=== PATIENT | female | born 1995 | race Caucasian/White ===

== ENCOUNTER 2016-08-16 09:16 | Day surgery (SDC) | payer BC ==
[2016-08-10 14:47] VITALS: BMI 26.4
[~2016-08-16 09:16] MED LIST: LACTATED RINGERS 1,000 ML IV SCH
[2016-08-16 09:41] VITALS: RESP 16; TEMP 98.5
[2016-08-16] MEDS ORDERED: LIDOCAINE 1% 20 ML VIAL (10MG/ML) FOR IV START INTRADERMA ONE (09:43)
[2016-08-16] MEDS ORDERED: fentaNYL (PF) 50 MCG/ML 2 ML AMP ONE (10:04)
[2016-08-16] MEDS ORDERED: TRIAMCINOLONE ACETONIDE 40 MG/ML 1 ML VIAL ONE (10:04)
[2016-08-16] MEDS ORDERED: MIDAZOLAM 2 MG/2 ML VIAL ONE (10:04)
[2016-08-16] MEDS ORDERED: IOHEXOL 180 MG/ML 1 ML ML ONE (10:04)
--- NOTE | 2016-08-16 10:28 | P.PCN ---
Date of Procedure: 08/16/16 Procedure(s) Performed: PREOPERATIVE DIAGNOSIS: 1- Lumbar Degenerative Disc Diseases 2-Lumbar radiculopathy. 3-lumbar herniated disc disease POSTOPERATIVE DIAGNOSIS: Same as preoperative diagnosis. PROCEDURE 1. Lumbar epidural steroid injection under fluoroscopic guidance at the L5-S1 level. 2. Lumbar epidurogram. ANESTHESIA: Local with 1% lidocaine 3 ml and IV sedation with Versed 4 mg , and fentanyle 100 Mcg EBL: Minimal PROCEDURE INDICATION: The patient with low back pain and radiculitis symptoms unresponsive to conservative treatment. Fluoroscopy was used to optimize visualization of the needle placement and to maximize safety. PROCEDURE DESCRIPTION / TECHNIQUE: The patient was seen and identified in the preoperative area. Risks, benefits , complications including but not limited to infections ,bleeding ,allergic reaction to the medications ,nerve damage and not complete pain releife , and alternatives were discussed with the patient. The patient agreed to proceed with the procedure and signed the consent. IV was started, and vital signs were stable. Patient was taken to the OR and time out was completed. The patient was placed in the prone position on procedure table and a pillow was placed under the abdomen to reduce lumbar lordosis. The lumbosacral area was prepped and draped in the usual sterile fashion.ere closely monitored during the procedure. Conscious sedation was used during the procedure to decrease patients anxiety. Vital signs was monitered during the entire procedure. Using anterior-posterior fluoroscopy, the L5-S1 interlaminar space was identified and the skin over this site was marked and then infiltrated with 1% lidocaine subcutaneously. Subsequently, a 20-gauge Tuohy epidural needle was inserted and advanced toward the epidural space using the Loss of resistance technique and guided by AP and lateral fluoroscopy. The correct needle position in the epidural space was verified with the injection of 2 mL of the water soluble contrast dye Omnipaque 180 contrast and observing an excellent epidurogram with the epidural spread of the dye, after negative aspiration for blood and CSF and in the absence of paresthesias. Again after negative aspiration, a 6 ml mixture containing 80 mg of Kenalog and 2 ml of preservative free Normal Saline, and 2 ml of preservative free lidocaine 1% solution was injected and a washout of epidurogram was seen. Needle was withdrawn intact, skin was cleansed, and bandages were applied. COMPLICATIONS: None DISPOSITION / PLANS: The patient was placed in a supine position and transferred to the recovery area in a stable condition for observation. There was no evidence of lower extremity motor or sensory deficit after the procedure. Patient was discharged from the recovery room after meeting discharge criteria. Home discharge instructions were given to the patient by the staff. The patient was reexamined prior to discharge. The patient will schedule a follow up in the clinic in 2-4 weeks. Patient also given prescription for Mobic 7.5 mg twice a day when necessary. And prescription for Ultram 50 mg every 8 hours when necessary dispense 60, examination today showed patient had severe tenderness over the left sacroiliac joint in the future if patient continues to have pain we will consider doing a left sacroiliac joint steroid injection
[2016-08-16] MEDS ORDERED: IV FLUID CONTINUATION 1,000 ML IV ONE (10:50)
[2016-08-16 11:01] VITALS: BP 128/82; PULSE 82
--- NOTE | 2016-08-16 11:58 | FL ---
EXAMINATION TYPE: FL guided pain mgmt statistic DATE OF EXAM: 08/16/2016 10:26 AM HISTORY: Pain LUMBAR EPIDURAL; FL TIME 3 SECONDS; DR. AGUDELO; ONE SCANNED FILM
== END 2016-08-16 11:12 | disposition home or self-care (01) ==
LOC: ORPAIN 09:16
PROVIDERS: ATTEND Specialist
DX: M51.16 Intervertebral disc disorders with radiculopathy, lumbar region (principal)
CPT/HCPCS: 81025; 62322; J2250; J3301; Q9965; J3010; 62323

== ENCOUNTER → 2016-09-14 | Outpatient (CLI) | payer BC ==
[2016-09-14 14:32] VITALS: BP 144/96; PULSE 101; RESP 18; TEMP 98.1
--- NOTE | 2016-09-14 15:05 | P.PN ---
Subjective This is follow-up visit for this patient with a history of severe and chronic low back pain with radiation to the lower extremity secondary to lumbar degenerative disc disease, lumbar facet arthropathy, we have done interventional pain management injection, lumbar epidural steroid injections 3 , and she continued to have severe low back pain, at her lower extremity pain improved after the epidural steroid injection, including her low back pain, she denies any motor sensory deficit, she denies any change in the bowel movement or urination, she denies any fever or night sweats, and is currently on pain medications 1-Mobic 7.5 mg twice a day 2-Ultram 50 mg every 8 hours when necessary Patient denies any side effects of the medication, denies excessive drowsiness or sleepiness, denies suicidal ideation, and reports that the current pain medication is NOT helping To control the pain and improve activity of daily living , patient is known to physical therapy and she has no benefit from physical therapy Physical Examinations : 1-Constitutiona : Cooperative , not in acute distress . 2-HEENT : nech ; supple , no Lymphadenopathy , no Thyromegaly , normal thyroid size . eyes : no ptosis , no icterus, no photophobia . ENT : normal of hearing , normal oropharynx , no Thrush . 3- Respiratory : Chest clear to auscultations Bilaterally , no wheezing , no Rhonchi . 4- Cardiovascular : regular rate and rhythem , S1 , S2 , no S3 , no S4. 5- Gastrointestinal : abdomen soft no tenderness , bowel sounds positive all four quadrents , no organomegally . 6- Genitourinary : Defferred . 7- neurologic : Cranial nerve II to XII intact , no focal neurological deffecit . 8-psychatric : alert , oriented X 3 , appropriate affect , intact judgment and insight . 9-Lymphatic : no Lymphadenopathy . 10- musculoskeltal : exams of the cervical spine = motor strength normal bilateral upper extremities facet loading test cervical area positive. exams of the Lumber spine = motor strength lower extremities ,thigh and legs .5/5 deep tendon reflexes : normal Knee Jerk , normal ankle Jerk . lumber facet Loading Test positive strait leg raising test negative bilaterally Fabere test negative bilaterally Diagnostic study= MRI of the lumbar spine done 05/31/2016 showed multilevel lumbar degenerative disc disease from L3 4 through L5-S1, and multilevel facet arthropathy and degeneration from L3-4 to L5-S1 Assessment and plan = - Chronic low back pain secondary to lumbar degenerative disc disease , lumbar spondylosis with facet arthropathy without myelopathy , - Status post lumbar epidural steroid injections 3, patient continued to have no back pain. Patient will be scheduled to have diagnostic medial branch block lumbar area at L3-4 /L4 5/L5-S1, and due to multiple different locations and if she had a good result (more than 50% improvement of her low back pain ) then we will proceed with the radiofrequency ablation of the medial branch lumbar area, and I discussed with patient that she continue to have pain after the injection ,then she has to consider the surgical options ,and this has to be discussed with Dr. Albarran for neurosurgeon. Objective - Vital Signs Vital signs: Vital Signs Temp 98.1 F 09/14/16 14:24 Pulse 101 H 09/14/16 14:24 Resp 18 09/14/16 14:24 BP 144/96 09/14/16 14:24 Pulse Ox 99 09/14/16 14:24 Intake & Output 09/13/16 09/14/16 09/14/16 18:59 06:59 18:59 Weight 86.183 kg
== END | disposition home or self-care (01) ==
LOC: PNWHC3 13:43
PROVIDERS: ATTEND Specialist
DX: G89.29 Other chronic pain (principal); M51.36 Other intervertebral disc degeneration, lumbar region; M47.816 Spondylosis without myelopathy or radiculopathy, lumbar region; Z79.1 Long term (current) use of non-steroidal anti-inflammatories (NSAID); Z79.891 Long term (current) use of opiate analgesic
CPT/HCPCS: 99211

== ENCOUNTER 2016-10-01 07:38 | Day surgery (SDC) | payer BC ==
[2016-09-30 08:40] VITALS: BMI 26.4
[2016-10-01 08:45] VITALS: RESP 16; TEMP 97.4
[2016-10-01] MEDS ORDERED: fentaNYL (PF) 50 MCG/ML 2 ML AMP ONE (09:20)
[2016-10-01] MEDS ORDERED: MIDAZOLAM 2 MG/2 ML VIAL ONE (09:20)
[2016-10-01] MEDS ORDERED: TRIAMCINOLONE ACETONIDE 40 MG/ML 1 ML VIAL ONE (09:20)
[2016-10-01] MEDS ORDERED: LIDOCAINE 1% 20 ML VIAL (10MG/ML) FOR IV START INTRADERMA ONE (09:20)
[2016-10-01] MEDS ORDERED: BUPIVACAINE (PF) 0.5% 30 ML VIAL ONE (09:20)
--- NOTE | 2016-10-01 09:47 | P.PCN ---
Date of Procedure: 10/01/16 Procedure(s) Performed: PREOPERATIVE DIAGNOSIS : 1- Lumbar spondylosis with Facet Arthropathy without myelopathy . 2- Lumber degenerative disc disease POSTOPERATIVE DIAGNOSIS: 1- Lumbar spondylosis with Facet Arthropathy without myelopathy . 2- Lumber degenerative disc disease PROCEDURE: Diagnostic bilateral L3 -4 , L4 -5 , and L5-S1 medial branch block under fluoroscopy ANESTHESIA: Local with 1% lidocaine 6 ml ; IV sedation with Versed 6 mg and Fentanyl 150 mcg. EBL: Minimal COMPLICATION: None. IV FLUIDS: 100 mL of normal saline. PROCEDURE INDICATION: Chronic low back pain secondary to Facet arthropathy unresponsive to conservative treatment. PROCEDURE DESCRIPTION: the patient was seen and identified in the preop holding area , risks and benefits and possible complications of the procedure and alternative were discussed with the patient, and the patient agreed to proceed with the procedure and signed the consent IV was started and vital signs monitored during the procedure and fluoroscopy was used to maximize the benefit and accuracy of the needle placement, and sedation was given to decrease patient anxiety, patient was taken to the procedure room and placed in prone position vital signs monitored in the back prepped with chlorhexidine X3 then under strict sterile technique using a right oblique fluoroscopy ,the junction of the transverse process and the superior articulating process of the right L3- 4 , L4- 5, and L5-S1 vertebra which corresponding to the fluoroscopy image of the eye of the Balta dog on the block side for the medial branches and subsequently , after local infiltration of skin and subcu tissuies with lidocaine 1% one mL at each level ,then 22- gauge Quincke-type needles , 3 needle was used , each one of them placed at the junction of the base of the transverse process and the superior articular process at the appropriate level, and the needle was advanced until the periosteum contacted, needle placement confirmed with AP oblique and lateral view and after appropriate needle placement confirmed, and after negative aspiration for heme and CSF and there was no paresthesia 1-1/2 mL of Marcaine 0.5% mixed with 40 mg Kenalog , then half mL injected at each level after negative aspiration the needle subsequently removed and the same procedure repeated for the left side at left side at L3-4, L4- 5 and L5-S1 levels. At the end of the procedure and the needles removed and a bandage applied after the skin was cleaned the cleaning solution patient taken to recovery room in stable condition and monitors in the recovery room for 20-30 minutes and discharged home in stable condition after discharge criteria met and patient will follow up with the pain clinic in 2-4 weeks
[2016-10-01] MEDS ORDERED: IV FLUID CONTINUATION 1,000 ML IV ONE (09:53)
--- NOTE | 2016-10-01 09:54 | FL ---
EXAMINATION TYPE: FL guided pain mgmt statistic DATE OF EXAM: 10/01/2016 9:50 AM HISTORY: Pain bilateral lumbar facet block; four scanned films; Dr. Cuevas; FL time 11 seconds
[2016-10-01 10:10] VITALS: BP 128/87; PULSE 80
== END 2016-10-01 10:34 | disposition home or self-care (01) ==
LOC: ORPAIN 07:38
PROVIDERS: ATTEND Specialist
DX: G89.29 Other chronic pain (principal); M51.36 Other intervertebral disc degeneration, lumbar region; M47.816 Spondylosis without myelopathy or radiculopathy, lumbar region; M46.96 Unspecified inflammatory spondylopathy, lumbar region; F41.9 Anxiety disorder, unspecified
CPT/HCPCS: 64493; 64494; 64495; 99152; 81025; J2250; J3301; J3010

== ENCOUNTER 2016-11-09 06:58 | Day surgery (SDC) | payer BC ==
[2016-11-05 15:10] VITALS: BMI 26.2
[2016-11-09 07:24] VITALS: RESP 16; TEMP 98.2
[2016-11-09] MEDS ORDERED: LACTATED RINGERS 1,000 ML IV SCH (07:30)
[2016-11-09] MEDS ORDERED: LIDOCAINE 1% 20 ML VIAL (10MG/ML) FOR IV START SQ ONE (07:32)
[2016-11-09] MEDS ORDERED: LACTATED RINGERS 1,000 ML IV ONE (07:33)
[2016-11-09] MEDS ORDERED: MIDAZOLAM 2 MG/2 ML VIAL ONE (07:53)
[2016-11-09] MEDS ORDERED: TRIAMCINOLONE ACETONIDE 40 MG/ML 1 ML VIAL ONE (07:53)
[2016-11-09] MEDS ORDERED: BUPIVACAINE (PF) 0.5% 30 ML VIAL ONE (07:53)
[2016-11-09] MEDS ORDERED: fentaNYL (PF) 50 MCG/ML 2 ML AMP ONE (07:53)
[2016-11-09] MEDS ORDERED: IV FLUID CONTINUATION 1,000 ML IV ONE (08:22)
--- NOTE | 2016-11-09 08:37 | FL ---
Fluoroscopy INDICATION: Pain FINDINGS: Fluoroscopy time: 28 seconds. Images obtained: 5. IMPRESSIONS: 1. Documentation of fluoroscopy.
[2016-11-09 08:40] VITALS: BP 118/61; PULSE 83
--- NOTE | 2016-11-09 08:42 | P.PCN ---
Date of Procedure: 11/09/16 Surgeon: Brandt Bello Pathology: none sent Condition: stable Disposition: PACU Description of Procedure: PREOPERATIVE DIAGNOSIS: L3-L4, L4-L5, and L5-S1 spondylosis without myelopathy and facet arthropathy. POSTOPERATIVE DIAGNOSIS: L3-L4, L4-L5, and L5-S1 spondylosis without myelopathy and facet arthropathy. PROCEDURE DESCRIPTION: Patient presents for L3, L4 and L5 diagnostic medial branch blocks under fluoroscopic guidance. The procedure is performed using fluoroscopic guidance during needle placement to assure proper position and maximize safety. ANESTHESIA: Local with 1% lidocaine; conscious sedation EBL: Minimal PROCEDURE INDICATION: Patient with lumbar facet arthropathy signs and symptoms, here for diagnostic medial branch block #2 after two weeks' relief >50% from first MBB. Pt does not take any blood thinning medications. PROCEDURE DESCRIPTION: The patient was seen and identified in the preoperative area. Risks, benefits, complications, and alternatives were discussed with the patient (including but not limited to incomplete pain relief, bleeding, infection, nerve damage, and allergies to medications), the patient agreed to proceed with the procedure and signed the consent after all questions were answered. Patient was taken to the OR and time out was completed to verify proper patient, position, laterality of pain, and allergies. Pt was placed in the prone position and a pillow was placed under the abdomen to reduce lumbar lordosis. The lumbosacral area was prepped and draped in the usual sterile fashion. Using oblique fluoroscopy, the eye of the "Balta dog" of right L4 vertebral body, which corresponds to the path of the medial branch originating from the level above, which is L3 in this case, was identified. Subsequently, a 22-gauge 3.5-inch spinal needle was inserted under fluoroscopic guidance toward the eye of the "Balta dog" of the right L4 vertebral body, corresponding to the junction of the superior articular process and the transverse process of the pedicle of the same level. After needle tip confirmation on lateral view and after negative aspiration for CSF and blood and without paresthesias, 1 mL of a 6 ml solution of 0.5% preservative-free bupivacaine and 40 mg Kenalog was injected. Subsequently the needle was withdrawn intact and the same procedure was repeated for the right L4, right L5, left L3, left L4, and left L5 medial branches which together with right L3 medial branch correspond to the sensory innervation of the bilateral L3-L4, L4-L5, and L5-S1 facet joints. Needle was withdrawn intact after each injection. At the end of the procedure, the skin was cleansed and bandages were applied. COMPLICATIONS: None. DISPOSITION/PLAN: The patient taken to the recovery area after the procedure in a stable condition for observation. Patient was reexamined prior to discharge and there were no issues. Patient was discharged home, accompanied by an adult, after meeting discharged criteria. Discharge instructions were give to the patient by the staff. Patient was specifically instructed not to drive today and to rest for the rest of the day. If the patient has relief, she will follow up for lumbar RFA at next visit.
== END 2016-11-09 08:55 | disposition home or self-care (01) ==
LOC: ORPAIN 06:58
PROVIDERS: ATTEND Anesthesiology
DX: M46.96 Unspecified inflammatory spondylopathy, lumbar region (principal); M47.816 Spondylosis without myelopathy or radiculopathy, lumbar region; M47.817 Spondylosis without myelopathy or radiculopathy, lumbosacral region; G89.29 Other chronic pain; Z79.899 Other long term (current) drug therapy
CPT/HCPCS: 81025; 64493; 64494; 64495; 99152; J2250; J3301; J3010

== ENCOUNTER 2016-12-16 06:24 | Day surgery (SDC) | payer BC ==
[2016-12-15 11:51] VITALS: BMI 26.4
[2016-12-16 06:38] VITALS: RESP 16; TEMP 97.8
[2016-12-16] MEDS ORDERED: LIDOCAINE 1% 20 ML VIAL (10MG/ML) FOR IV START INTRADERMA ONE (06:42)
[2016-12-16] MEDS ORDERED: BUPIVACAINE (PF) 0.5% 30 ML VIAL ONE (07:15)
[2016-12-16] MEDS ORDERED: fentaNYL (PF) 50 MCG/ML 2 ML AMP ONE (07:15)
[2016-12-16] MEDS ORDERED: MIDAZOLAM 2 MG/2 ML VIAL ONE (07:15)
[2016-12-16] MEDS ORDERED: TRIAMCINOLONE ACETONIDE 40 MG/ML 1 ML VIAL ONE (07:15)
--- NOTE | 2016-12-16 07:46 | P.PCN ---
Date of Procedure: 12/16/16 Procedure(s) Performed: PREOPERATIVE DIAGNOSIS: 1-Lumbar Spondylosis with Facet Arthropathy without myelopathy. POSTOPERATIVE DIAGNOSIS: 1- Lumbar Spondylosis with Facet Arthropathy without myelopathy. PROCEDURES : Left Radiofrequency thermocoagulation, L3-L4, L4-L5, and L5-S1 medial branch, with fluoroscopic guidance ANESTHESIA: IV sedation with versed 4 mg and fentaneyl 150 mcg and local infiltration with lidocaine 1% 6 ml EBL: Minimal PROCEDURE INDICATION: The patient with low back pain secondary to lumbar facet arthropathy who had more than 50% relief of her pain with previous diagnostic lumbar medial branch block with bupivacaine. PROCEDURE DESCRIPTION / TECHNIQUE: The patient was seen and identified in the preoperative area. Risks, benefits, complications, including but not limited to risk of infection ,bleeding , allergic reactions to the medications and no complete pain releife , and alternatives were discussed with the patient, the patient agreed to proceed with the procedure and signed the consent. IV was started. Vital signs remained stable throughout the procedure. Patient was taken to the OR and time out was completed. The patient was placed in the prone position on the procedure table. The lumber area was prepped and draped in the usual sterile fashion. . Vital signs were closely monitored during the procedure .IV sedation was used during the procedure to decrease patients anxiety. Using AP and then oblique fluoroscopy, the ``eye of the Balta dog corresponding to the connection between the superior and transverse articular processes of left L3, L4, and L5 were identified, marked, and localized with 1 % lidocaine. Subsequently, a 18 [id number] radiofrequency cannula with a 10- mm active tip was advanced guided by fluoroscopy to each of the ``eyes of the Balta dog at left L3, L4, and L5. Each site then underwent sensory testing at 50 Hz and 0 to 1 volt and motor testing at 2.5 Hz and 0 to 3 volt with local stimulation, but no radicular symptoms down the legs. Thereafter the left L3-4, L4-5, and L5-S1 sites underwent radiofrequency thermocoagulation at 80 degrees celsius for 90 seconds after injecting 0.5 ml of PF lidocaine 1%. then After the thermocoagulation done , 1 ml of the block solution containing Kenalog 40 mg and 3 ml of marain 0.5% was injected at the left L3- 4 , L4-5 , and L5-S1, levels after negative aspiration of CSF and blood and with no paresthesias. Cannulas were retracted while injecting lidocaine 1% until the needle is out. At the end of the procedure, the skin was cleansed and bandages were applied. COMPLICATIONS: No acute complications. DISPOSITION / PLANS: The patient was placed in a supine position and transferred to the recovery area in a stable condition for observation and was discharged from the recovery room after meeting discharge criteria. Home discharge instructions given to the patient by the staff. The patient was reexamined prior to discharge. The patient will schedule a follow up in the clinic in 2-4 weeks.
[2016-12-16] MEDS ORDERED: IV FLUID CONTINUATION 1,000 ML IV ONE (07:51)
--- NOTE | 2016-12-16 08:14 | FL ---
Fluoroscopy HISTORY: Pain 23 seconds fluoroscopy time supplied to the referring clinician. 3 intraoperative C-arm images docum ent the procedure. See dictated report from anesthesia.
[2016-12-16 08:17] VITALS: BP 124/87; PULSE 80
== END 2016-12-16 08:26 | disposition home or self-care (01) ==
LOC: ORPAIN 06:24
PROVIDERS: ATTEND Specialist
DX: M47.816 Spondylosis without myelopathy or radiculopathy, lumbar region (principal); M46.96 Unspecified inflammatory spondylopathy, lumbar region
CPT/HCPCS: 81025; 64635; 64636; 99152; J2250; J3301; J3010

== ENCOUNTER 2017-01-19 06:22 | Day surgery (SDC) | payer BC ==
[2017-01-17 15:05] VITALS: BMI 25.7
[2017-01-19 07:10] VITALS: TEMP 98.3
[2017-01-19] MEDS ORDERED: BUPIVACAINE (PF) 0.5% 30 ML VIAL ONE (07:34)
[2017-01-19] MEDS ORDERED: DEXAMETHASONE SOD PHOS (MDV) 100 MG/10 ML VIAL ONE (07:34)
[2017-01-19] MEDS ORDERED: MIDAZOLAM 2 MG/2 ML VIAL ONE (07:34)
[2017-01-19] MEDS ORDERED: fentaNYL (PF) 50 MCG/ML 2 ML AMP ONE (07:34)
--- NOTE | 2017-01-19 07:59 | P.PCN ---
Date of Procedure: 01/19/17 Preoperative Diagnosis: Postoperative Diagnosis: Procedure(s) Performed: PREOPERATIVE DIAGNOSIS: 1-Lumbar Spondylosis with Facet Arthropathy without myelopathy. POSTOPERATIVE DIAGNOSIS: 1- Lumbar Spondylosis with Facet Arthropathy without myelopathy. PROCEDURES : Right Radiofrequency thermocoagulation, L3-L4, L4-L5, and L5-S1 medial branch, with fluoroscopic guidance ANESTHESIA: IV sedation with versed 4 mg and fentaneyl 200 mcg and local infiltration with lidocaine 1% 6 ml EBL: Minimal PROCEDURE INDICATION: The patient with low back pain secondary to lumbar facet arthropathy who had more than 50% relief of her pain with previous diagnostic lumbar medial branch block with bupivacaine. PROCEDURE DESCRIPTION / TECHNIQUE: The patient was seen and identified in the preoperative area. Risks, benefits, complications, including but not limited to risk of infection ,bleeding , allergic reactions to the medications and no complete pain releife , and alternatives were discussed with the patient, the patient agreed to proceed with the procedure and signed the consent. IV was started. Vital signs remained stable throughout the procedure. Patient was taken to the OR and time out was completed. The patient was placed in the prone position on the procedure table. The lumber area was prepped and draped in the usual sterile fashion. . Vital signs were closely monitored during the procedure .IV sedation was used during the procedure to decrease patients anxiety. Using AP and then oblique fluoroscopy, the ``eye of the Balta dog corresponding to the connection between the superior and transverse articular processes of right L3, L4, and L5 were identified, marked, and localized with 1 % lidocaine. Subsequently, a 18 [id number] radiofrequency cannula with a 10- mm active tip was advanced guided by fluoroscopy to each of the ``eyes of the Balta dog at right L3, L4, and L5. Each site then underwent sensory testing at 50 Hz and 0 to 1 volt and motor testing at 2.5 Hz and 0 to 3 volt with local stimulation, but no radicular symptoms down the legs. Thereafter the right L3-4, L4-5, and L5-S1 sites underwent radiofrequency thermocoagulation at 80 degrees celsius for 90 seconds after injecting 0.5 ml of PF lidocaine 1%. then After the thermocoagulation done , 1 ml of the block solution containing Dexamethasone 10 mg and 3 ml of marain 0.5% was injected at the right L3-4 , L4-5 , and L5-S1, levels after negative aspiration of CSF and blood and with no paresthesias. Cannulas were retracted while injecting lidocaine 1% until the needle is out. At the end of the procedure, the skin was cleansed and bandages were applied. COMPLICATIONS: No acute complications. DISPOSITION / PLANS: The patient was placed in a supine position and transferred to the recovery area in a stable condition for observation and was discharged from the recovery room after meeting discharge criteria. Home discharge instructions given to the patient by the staff. The patient was reexamined prior to discharge. The patient will schedule a follow up in the clinic in 2-4 weeks. Implants: Indications for Procedure: Operative Findings: Description of Procedure:
--- NOTE | 2017-01-19 08:06 | FL ---
EXAMINATION TYPE: FL guided pain mgmt statistic DATE OF EXAM: 01/19/2017 CLINICAL HISTORY: Low back pain. TECHNIQUE: Fluoroscopy. COMPARISON: None. FINDINGS: Fluoroscopic guidance was provided during pain relief procedure performed by Dr. Mccormack . A total of 7 seconds of fluoroscopic time was utilized during the procedure and 3 spot images are acquired. Images acquired shows needle localization at several levels in the lumbar spine. IMPRESSION: As Above.
[2017-01-19 08:31] VITALS: BP 121/84; PULSE 80; RESP 16
[2017-01-19] MEDS ORDERED: IV FLUID CONTINUATION 1,000 ML IV ONE (08:31)
== END 2017-01-19 08:38 | disposition home or self-care (01) ==
LOC: ORPAIN 06:22
PROVIDERS: ATTEND Specialist
DX: M47.816 Spondylosis without myelopathy or radiculopathy, lumbar region (principal); M46.96 Unspecified inflammatory spondylopathy, lumbar region
CPT/HCPCS: 64635; 64636 ×2; 99152; 81025; J2250; J3010; J1100

== ENCOUNTER → 2017-02-21 | Outpatient (CLI) | payer BC ==
[2017-02-21 13:59] VITALS: BP 138/92; PULSE 103; RESP 16; TEMP 100.5
--- NOTE | 2017-02-21 14:22 | P.PN ---
Progress Note - Text Patient returns for followup for chronic back pain with radiation to bilateral lower extremities. Patient recently underwent bilateral lumbar RFA, which has provided excellent for interval since procedure; patient does not have any pain in her legs and back pain is significantly improved. Patient continues on tramadol medications for pain with good relief. Patient denies adverse drug effects from medications. Today, pt denies new-onset weakness, bowel/bladder incontinence, or any other signs or symptoms of cauda equina syndrome. There are no signs of acute intoxication, and no indications of medication diversion or overuse. In addition to above, 13-point review of systems is also negative for chest pain , shortness of breath, changes in vision, changes in hearing, new onset weakness , abdominal pain, diarrhea, extreme fatigue, malaise, fever, skin changes, homicidal or suicidal ideation, or bowel or bladder incontinence. Vital Signs: Reviewed in EMR Gen: WDWN, AAOx3, NAD HEENT: NCAT, EOMI, hearing grossly normal Pulm: resp unlabored Abd: soft, NT, ND Neck: supple, trachea midline ROM in flexion lumbar spine: reduced ROM in extension lumbar spine: reduced Lumbar paravertebral tenderness: + Facet loading: + bilateral, L > R SI joint tenderness: neg Yadiel's test: + L > R Straight leg raise: neg Neuro: CN II-XII grossly intact, muscle strength lower extremities PRESERVED Imaging: Reviewed in EMR Assessment: 1. lumbar disc herniation 2. lumbar spondylosis without myelopathy 3. chronic pain syndrome Plan: 1. Explanation: Opioid and psychological risk scores were reviewed. Diagnoses , prognoses, and multiple treatment options including but not limited to physical therapy, interventional therapies, adjuvant medical therapies, narcotic medication therapies, and surgery were discussed with the patient and all questions were answered to the patient's satisfaction. 2. Opioid agreement: Patient has previously signed narcotic agreement, and was orally counseled to not overuse, abuse, divert, or cell medications, and to take them as prescribed by only 1 healthcare provider. The patient was also counseled to store opioid medications in a safe and preferably locked location. Patient was also counseled against driving or operating heavy equipment while using narcotic medications and also to not use alcohol or any illicit or recreational drugs. The patient verbalized understanding that lack of compliance with any of the above and likely result in failure to renew narcotic prescriptions, possible discharge from the clinic, and possible legal ramifications thereafter if indicated. 3. Counseling: The patient was counseled extensively on SMOKING CESSATION, BODY MASS INDEX, EXERCISE. Specifically, the patient was instructed regarding the importance of smoking cessation, weight control, and exercise in the context of both chronic pain and overall health. 4. Procedures: none for now 5. Consultations: None 6. Investigations: None 7. Medications: tramadol 50 mg #90 with no refills (two months' supply) 8. Disposition: f/u for PQRS measures: 1-Patient's medications are documented in the chart. 2-Tobacco use is positive, counseling given 3-Patient has not had a pneumococcal vaccine. 4-Advanced care planning discussed, patient unable to give. 5-Opioid contract signed with the patient. 6-Pain positive, follow-up visit or procedure scheduled 7-Patient's blood pressure measured and documented, and patient will follow up with the primary care due to hypertension. 8-Patient's weight was measured, and body mass index ABOVE the normal limits, and counseling was done. Patient instructed to follow up with PCP. 9-Patient WAS NOT identified as an unhealthy alcohol user.
== END | disposition home or self-care (01) ==
LOC: PNWHC3 13:29
PROVIDERS: ATTEND Anesthesiology
DX: M51.26 Other intervertebral disc displacement, lumbar region (principal); M47.816 Spondylosis without myelopathy or radiculopathy, lumbar region; G89.4 Chronic pain syndrome; Z79.899 Other long term (current) drug therapy
CPT/HCPCS: 99211

== ENCOUNTER → 2017-03-23 | Outpatient (CLI) | payer BC ==
--- NOTE | 2017-03-23 10:40 | XR ---
EXAMINATION TYPE: XR KUB DATE OF EXAM: 03/23/2017 CLINICAL DATA: 22-year-old female right-sided groin pain, evaluate for stone, [facility] COMPARISON: None FINDINGS: Lung bases are clear. No evidence for free intraperitoneal air. No dilated small bowel or air-fluid levels. Scattered air and stool seen throughout the colon extendi ng distally into the rectum. Mild stool burden. No suspicious calcifications identified. [id number]-[id number] radiodensity projecting above the right acetabulum could be external artifact or some surgical material. IMPRESSION: 1. No suspicious calcifications identified. 2.No evidence of bowel obstruction or free intraperitoneal air. 3. Ltvbil-bf-twfve radiodensity projecting above the right acetabulum could be external artifact or s urgical material. Clinically correlate.
== END | disposition home or self-care (01) ==
LOC: RADXRMAIN 09:37
PROVIDERS: ATTEND Physician Assistant
DX: N20.1 Calculus of ureter (principal)
CPT/HCPCS: 74000

== ENCOUNTER → 2017-04-18 | Outpatient (CLI) | payer BC ==
[2017-04-18 14:09] VITALS: BP 121/81; PULSE 76; RESP 16; TEMP 98.3
--- NOTE | 2017-04-18 14:21 | P.PN ---
Progress Note - Text Patient returns for followup for chronic back pain with radiation to bilateral lower extremities. Patient previously underwent bilateral lumbar RFA, which is still giving her excellent relief, pain well-controlled with rare tramadol pill and Flexeril; patient does not have any pain in her legs and back pain is significantly improved. Patient denies adverse drug effects from medications. Today, pt denies new-onset weakness, bowel/bladder incontinence, or any other signs or symptoms of cauda equina syndrome. There are no signs of acute intoxication, and no indications of medication diversion or overuse. In addition to above, 13-point review of systems is also negative for chest pain , shortness of breath, changes in vision, changes in hearing, new onset weakness , abdominal pain, diarrhea, extreme fatigue, malaise, fever, skin changes, homicidal or suicidal ideation, or bowel or bladder incontinence. Vital Signs: Reviewed in EMR Gen: WDWN, AAOx3, NAD HEENT: NCAT, EOMI, hearing grossly normal Pulm: resp unlabored Abd: soft, NT, ND Neck: supple, trachea midline ROM in flexion lumbar spine: reduced ROM in extension lumbar spine: reduced Lumbar paravertebral tenderness: + Facet loading: + bilateral, L > R SI joint tenderness: neg Yadiel's test: + bilateral Straight leg raise: neg Neuro: CN II-XII grossly intact, muscle strength lower extremities PRESERVED Imaging: Reviewed in EMR Assessment: 1. lumbar disc herniation 2. lumbar spondylosis without myelopathy 3. chronic pain syndrome Plan: 1. Explanation: Opioid and psychological risk scores were reviewed. Diagnoses , prognoses, and multiple treatment options including but not limited to physical therapy, interventional therapies, adjuvant medical therapies, narcotic medication therapies, and surgery were discussed with the patient and all questions were answered to the patient's satisfaction. 2. Opioid agreement: Patient has previously signed narcotic agreement, and was orally counseled to not overuse, abuse, divert, or cell medications, and to take them as prescribed by only 1 healthcare provider. The patient was also counseled to store opioid medications in a safe and preferably locked location. Patient was also counseled against driving or operating heavy equipment while using narcotic medications and also to not use alcohol or any illicit or recreational drugs. The patient verbalized understanding that lack of compliance with any of the above and likely result in failure to renew narcotic prescriptions, possible discharge from the clinic, and possible legal ramifications thereafter if indicated. 3. Counseling: The patient was counseled extensively on SMOKING CESSATION, BODY MASS INDEX, EXERCISE. Specifically, the patient was instructed regarding the importance of smoking cessation, weight control, and exercise in the context of both chronic pain and overall health. 4. Procedures: none for now 5. Consultations: None 6. Investigations: None 7. Medications: tramadol 50 mg #90 with no refills (two months' supply); Flexeril 10 mg qhs #30 with 3 refills 8. Disposition: f/u as needed. Patient is well-controlled on extremely low- dose medications which can be easily prescribed by her PCP. Patient can return when back pain becomes more persistent for repeat RFAs. PQRS measures: 1-Patient's medications are documented in the chart. 2-Tobacco use is positive, counseling given 3-Patient has not had a pneumococcal vaccine. 4-Advanced care planning discussed, patient unable to give. 5-Opioid contract signed with the patient. 6-Pain positive, follow-up visit or procedure scheduled 7-Patient's blood pressure measured and documented, and patient will follow up with the primary care due to hypertension. 8-Patient's weight was measured, and body mass index ABOVE the normal limits, and counseling was done. Patient instructed to follow up with PCP. 9-Patient WAS NOT identified as an unhealthy alcohol user.
== END | disposition home or self-care (01) ==
LOC: PNWHC3 13:47
PROVIDERS: ATTEND Anesthesiology
DX: M51.26 Other intervertebral disc displacement, lumbar region (principal); M47.816 Spondylosis without myelopathy or radiculopathy, lumbar region; G89.4 Chronic pain syndrome; Z79.899 Other long term (current) drug therapy
CPT/HCPCS: 99211

== ENCOUNTER → 2017-12-08 | Outpatient (CLI) | payer BC ==
[2017-12-08 14:39] VITALS: BP 139/95; PULSE 98; RESP 16
--- NOTE | 2017-12-08 15:07 | P.PAINPG ---
Subjective Progress Note Date: 12/08/17 Principal diagnosis: Lumbar radiculopathy Objective - Vital Signs Vital signs: Vital Signs Temp Pulse 98 12/08/17 14:29 Resp 16 12/08/17 14:29 BP 139/95 12/08/17 14:29 Pulse Ox Intake & Output 12/07/17 12/08/17 12/08/17 18:59 06:59 18:59 Weight 90.718 kg - Exam Physical Examination : 1-Constitutional : Cooperative , not in acute distress . 2-HEENT : No obvious masses. Normocephalic. 3- Respiratory : Chest clear to auscultation. 4- Cardiovascular : regular rate and rhythm. 5- Gastrointestinal: abdomen soft no tenderness , bowel sounds positive all four quadrants, no organomegaly . 6- Genitourinary : Deferred . 7- Integumentary : No cellulitis , no ulcers, normal skin turgor, no cyanotic. 8- neurologic : Straight leg raise on the left is positive. It is negative on the right. No sensory deficits in the lower extremities 9- psychatric : alert, oriented, appropriate affect , intact judgment and insight . Affect congruent with situation. 10- musculoskeltal: normal gait, she has good strength in both legs with no obvious focal deficits. Facet loading maneuvers are positive bilaterally being worse on the left. Assessment and Plan Plan: Follow-up plan: Lumbar radiculopathy secondary to herniated nucleus pulposus Intractable back pain secondary to lumbar spondylosis Medications: Patient will continue on Flexeril as prescribed by her primary care physician. She has requested a perception for tramadol. We have prescribed this for her in the past. She uses this very sparingly. I reviewed her labs reportedly reveals no unusual activity. She understand the risks and benefits of this procedure. I have highly advised her not to become while on this medicine. I also advised her to secure these medicines and that we will not replace them if they are stolen. Procedures: We will schedule the patient for lumbar steroid injection performed at the left L5-S1 interspace. She does have a herniated nucleus pulses at this level. We will consider repeat of bilateral lumbar radio frequency ablation at the L4, L5 and sacral alar levels in the future if this epidural is not significantly helpful for her. Referrals: None Additional tests ordered: None Next follow-up visit: Lumbar epidural steroid injection PQRS Measure Charge Sheet Measure #130: Documentation of Current Meds in Medical Chart: Patient's medications documented in chart Measure #226: Tobacco Use: Screen & Cessation Intervention: Pt screened for tobacco use AND intervention given Measure #111: Pneumonia Vaccination: Pneumococcal vaccine NOT administered or previously given Measure #47: Advance Care Plan: Advance care planning discussed & documented, pt chose/unable to give Measure #412: Opioid Treatment Agreement: Documented signed opioid trtmnt agreemnt min once during opioid trtmnt Measure #408: Opioid Therapy Follow-up Evaluation: Patient had f/u eval minimum every 3 months during opioid therapy Measure #317: Preventitive Care & Scrn High Bld Press & F/U: Pre-hypertensive or hypertensive BP documented, pt will f/u with PCP Measure #128: Body Mass Index (BMI) Screening & Follow-up: BMI documented ABOVE normal parameters - f/u documented Measure #131: Pain Assessment & Follow-up: Pain positive & plan documented Measure #431: Unhealthy Alcohol Use Preventative Care & Scrn: Patient not identified as an unhealthy alcohol user PQRS Narrative: Smoking Status Current some day smoker Do You Want the Pneumonia No Vaccine AT THIS TIME? Narcotic Agreement Date Signed 02/12/16 Blood Pressure 139/95 Pain Intensity [Left Lower 2 Back] Scale Used Numeric (1 - 10) Hx Alcohol Use (MH) Yes Home Medications: Ambulatory Orders Acetaminophen Tab [Tylenol] 1 - 2 tab PO Q4-6H PRN 04/20/16 Norethindrone AC-Eth Estradiol [Microgestin 21 1.5-30 Tab] 1 each PO 1500 Cyclobenzaprine [Flexeril] 10 mg PO HS PRN #30 tab 04/18/17 traMADol HCl [Ultram] 50 mg PO Q6HR PRN #90 04/18/17 Controlled Substance Measures - Controlled Substance Measures Is patient prescribed a controlled substance at discharge?: Yes If prescribed controlled substance>3 days was MAPS reviewed?: Yes When asked, does pt state using other controlled substances?: No
== END | disposition home or self-care (01) ==
LOC: PNWHC3 14:17
PROVIDERS: ATTEND Pain Medicine Pain Medicine
DX: M51.16 Intervertebral disc disorders with radiculopathy, lumbar region (principal); M47.26 Other spondylosis with radiculopathy, lumbar region; F17.200 Nicotine dependence, unspecified, uncomplicated; Z79.899 Other long term (current) drug therapy; Z79.891 Long term (current) use of opiate analgesic
CPT/HCPCS: 99211

== ENCOUNTER 2018-01-05 07:48 | Day surgery (SDC) | payer BC ==
[2017-12-28 10:25] VITALS: BMI 27.8
[2018-01-05 08:07] VITALS: RESP 16; TEMP 97.6
[2018-01-05] MEDS ORDERED: LIDOCAINE 1% 20 ML VIAL (10MG/ML) FOR IV START INTRADERMA ONE (08:13)
[2018-01-05 09:23] VITALS: PULSE 90
[2018-01-05] MEDS ORDERED: IV FLUID CONTINUATION 1,000 ML IV ONE (09:32)
[2018-01-05 09:41] VITALS: BP 124/87
--- NOTE | 2018-01-05 10:01 | FL ---
EXAMINATION TYPE: FL guided pain mgmt statistic DATE OF EXAM: 01/05/2018 COMPARISON: NONE HISTORY: Back pain TECHNIQUE: Fluoroscopy. FINDINGS/IMPRESSION: Fluoroscopic guidance was provided during procedure performed by Dr. Mcmullen. A total of 1 seconds of fluoroscopic time was utilized during the procedure and 1 spot images was acqu ired demonstrating localization of the L4-L5 vertebral level.
--- NOTE | 2018-01-12 18:04 | P.OP ---
Date of Procedure: 01/05/18 Preoperative Diagnosis: Herniated nucleus publicists Procedure(s) Performed: lumbar epidural steroid injection Surgeon: Gus Mcmullen Description of Procedure: date of procedure: January 05, 2018 surgeon: Gus Mcmullen MD preop diagnosis: herniated nucleus publicists, left lumbar radicular pain. Diagnosis: same procedure: lumbar epidural steroid injection L5-S1with fluoroscopy indication for procedure: this is a very pleasant 22-year-old woman with a history of a herniated nucleus pulposis and left lumbar nuclear pain who presents a former first lumbar epidural steroid injection. procedure in detail: after potential risks and benefits of this procedure were discussed with the patient, the patient signed informed consent. She was then transported to the operating room suite. She was positioned in the prone position. Vital signs were monitored per hospital standards. Her back was prepped and draped with floor prep. The fluoroscope was used identify the L5-S1 interspace. local anesthetic was applied to the tissue above this space with 1 % lidocaine. A 20gauge to touhy without advance through the skin and subcutaenous tissue until loss of resistance to normal saline was achieved. The tip of the needle was confirmed in the AP and lateral positions. Contrast was then injected to confirm good spread of the epidural space. Then, after negative aspiration, two cc's of preservative free normal saline and 80 mg of Depo-Medrol is injected. The needle was then withdrawn intact. Patient had apparent complications from this procedure and was transferred to the recovery area in stable condition and eventually discharged with a delivery route driver. Follow-up: the patient will follow-up a repeat of this procedure in 2 to 4 weeks.
== END 2018-01-05 10:05 | disposition home or self-care (01) ==
LOC: ORPAIN 07:48
PROVIDERS: ATTEND Pain Medicine Pain Medicine
DX: M51.16 Intervertebral disc disorders with radiculopathy, lumbar region (principal)
CPT/HCPCS: 81025; 62323; J1030; Q9966

== ENCOUNTER 2018-01-24 05:55 | Day surgery (SDC) | payer BC ==
[2018-01-19 11:55] VITALS: BMI 27.8
[2018-01-24 07:10] VITALS: TEMP 98.5
[2018-01-24] MEDS ORDERED: LIDOCAINE 1% 20 ML VIAL (10MG/ML) FOR IV START INTRADERMA ONE (07:22)
--- NOTE | 2018-01-24 07:48 | P.PCN ---
Date of Procedure: 01/24/18 Surgeon: Brandt Bello Pathology: none sent Condition: stable Disposition: PACU Description of Procedure: PREOPERATIVE DIAGNOSIS: 1-Lumbar radiculitis. POSTOPERATIVE DIAGNOSIS: 1-Lumbar radiculitis. PROCEDURE 1. Lumbar epidural steroid injection under fluoroscopic guidance at the L5-S1 level. 2. Lumbar epidurogram. ANESTHESIA: Local with 1% lidocaine; IV sedation with Versed/fentanyl. EBL: Minimal PROCEDURE INDICATION: The patient with low back pain and radiculitis symptoms unresponsive to conservative treatment, relief for three weeks from first LESI, #2 today, no use of blood thinners. Fluoroscopy was used to optimize visualization of the needle placement and to maximize safety. PROCEDURE DESCRIPTION / TECHNIQUE: The patient was seen and identified in the preoperative area. Risks, benefits, complications, and alternatives were discussed with the patient, including but not limited to bleeding, infection, nerve damage, allergic reactions to medications, and incomplete pain relief. The patient agreed to proceed with the procedure and signed the consent after all questions were answered. IV was started, and vital signs were stable. Patient was taken to the OR and time out was completed to confirm patient position, procedure, laterality of pain, and allergies. The patient was placed in the prone position on procedure table and a pillow was placed under the abdomen to reduce lumbar lordosis. The lumbosacral area was prepped and draped in the usual sterile fashion. Critical pause was taken. Vital signs were closely monitored during the procedure. Conscious sedation was used during the procedure to decrease patients anxiety. Using anterior-posterior fluoroscopy, the L5-S1 interlaminar space was identified and the skin over this site was marked and then infiltrated with 1% lidocaine subcutaneously in a left paramedian fashion. Subsequently, a 20-gauge 3.5-inch Tuohy epidural needle was inserted and advanced toward the epidural space using the Loss of resistance technique and guided by AP and lateral fluoroscopy. The correct needle position in the epidural space was verified with the injection of 2 mL of the water soluble contrast dye Isovue 200 contrast and observing an excellent epidurogram with the epidural spread of the dye, after negative aspiration for blood and CSF and in the absence of paresthesias. Again after negative aspiration, a 6 ml mixture containing 80 mg of Deop Medrol and 2 ml of preservative free Normal Saline, and 2 ml of preservative free lidocaine 1% solution was injected and a washout of epidurogram was seen. Needle was withdrawn intact, skin was cleansed, and bandages were applied. COMPLICATIONS: None COMMENTS: DISPOSITION / PLANS: The patient was placed in a supine position and transferred to the recovery area in a stable condition for observation. There was no evidence of lower extremity motor or sensory deficit after the procedure. Patient was discharged from the recovery room after meeting discharge criteria. Home discharge instructions were given to the patient by the staff. The patient was reexamined prior to discharge and there were no issues. The patient will schedule a follow up in the clinic in 2-4 weeks to discuss lumbar RFA.
--- NOTE | 2018-01-24 08:05 | FL ---
EXAMINATION TYPE: FL guided pain mgmt statistic DATE OF EXAM: 01/24/2018 CLINICAL HISTORY: Low back pain. TECHNIQUE: Fluoroscopy. COMPARISON: None. FINDINGS: Fluoroscopic guidance was provided during pain relief procedure performed by Dr. Bello . A total of 7 seconds of fluoroscopic time was utilized during the procedure and 5 spot images are acq uired. Images acquired shows needle localization at L5 level. IMPRESSION: As Above.
[2018-01-24 08:06] VITALS: RESP 18
[2018-01-24 08:21] VITALS: BP 119/81; PULSE 74
[2018-01-24] MEDS ORDERED: IV FLUID CONTINUATION 1,000 ML IV ONE (08:21)
== END 2018-01-24 08:27 | disposition home or self-care (01) ==
LOC: ORPAIN 05:55
PROVIDERS: ATTEND Anesthesiology
DX: M54.16 Radiculopathy, lumbar region (principal)
CPT/HCPCS: 81025; 62323; J2250; J1030; J3010